=== PATIENT | male | born 1985 | race Hispanic/Latino ===

== ENCOUNTER → 2024-07-09 | Outpatient (CLI) | payer MEDICAID | END | disposition home or self-care (01) | LOC: SHCH 09:57 | PROVIDERS: ATTEND Internal Medicine Cardiovascular Disease | DX: I42.2 Other hypertrophic cardiomyopathy (principal) | CPT/HCPCS: 93306 ==

== ENCOUNTER → 2025-04-30 | Outpatient (CLI) | payer MEDICAID ==
--- NOTE | 2025-05-01 06:21 | HMCIMG ---
EXAMINATION: ULTRASOUND OF THE ABDOMEN WITH DUPLEX SCAN. CLINICAL HISTORY: Abnormal LFT COMPARISON: None. TECHNIQUE: Real-time grayscale ultrasound images of the abdomen. In addition, color Doppler is medically necessary to perform in order to evaluate vascularity and blood flow. FINDINGS: Liver: Bulky in caliber, the right hepatic lobe measures 16.3 cm in the craniocaudal dimension. There is increased echogenicity of the hepatic parenchyma. There is no focal hepatic abnormality or intrahepatic biliary ductal dilatation. The main portal vein diameter is normal measures 1.2 cm. Appropriate hepatopetal flow within the hepatic arteries and portal veins, and hepatofugal flow within the hepatic veins. Velocities in portal, and splenic veins are normal. Doppler indices are as follow: Main portal vein: 24 cm/s Right hepatic vein: 14 cm/s Mid hepatic vein: 27 cm/s Left hepatic vein: 27 cm/s Splenic vein: 81 cm/s at hilum. Hepatic artery: 44 cm/s and RI 0.80 Gallbladder: Within normal limits with normal wall thickness (0.27 cm). No hyperemia or pericholecystic free fluid. There is no cholelithiasis. Common bile duct is normal in caliber, measuring 0.31 cm. Spleen is normal in caliber and measures 14.6 x 5.1 x 4.2 cm in craniocaudal, AP and transverse dimensions respectively. No focal lesions. Pancreas: Normal in caliber and echotexture. No calcification or dilated pancreatic duct. The kidneys are normal in caliber, the right kidney measures 10.6 x 4.8 x 5.0 cm and the left kidney measures 10.2 x 5.3 x 4.7 cm in its craniocaudal, AP and transverse dimensions respectively. There is normal renal cortical thickness and cortical echogenicity. There is no renal calculus or hydronephrosis bilaterally. Visualized aspects of the abdominal aorta and inferior vena cava are unremarkable. IMPRESSION: Hepatomegaly with hepatic steatosis. Mild splenomegaly. Slight slow flow in the right hepatic vein. Normal Doppler of abdomen in the remainder of the vessels. /Anuradha
== END | disposition home or self-care (01) ==
LOC: RAH 08:59
PROVIDERS: ATTEND Internal Medicine Gastroenterology
DX: K76.0 Fatty (change of) liver, not elsewhere classified (principal); R16.2 Hepatomegaly with splenomegaly, not elsewhere classified; R79.89 Other specified abnormal findings of blood chemistry; R94.5 Abnormal results of liver function studies
CPT/HCPCS: 76700; 93975